=== PATIENT | male | born 1960 | race Caucasian/White ===

== ENCOUNTER 2016-12-19 02:48 | Observation (INO) | payer BC ==
[~2016-12-19] VITALS: Ht 180.3 cm; Wt 109.8 kg
[~2016-12-19 02:48] MED LIST: /ESCI20TA OR; /PANT40TA OR; ASPI81TA83 OR; COMBIN INH; CREON; CREON OR; GABA600T3; INSULANT SC; INSULANT SQ; INSULIN LANTUS; INSULIN LANTUS SC; INSULIN SC; LASIX PO; LIPI10TA OR; LISI10TA4 PO; LISI20TA5 OR; LYRI200C PO; LYRI300C OR; LYRI75CA PO; METH10TA2 OR; MICR10CA PO; MIRT1TAB PO; MULTIVIT OR; ORACEA OR; OXYC-208 PO; OXYC10TA56 OR; PANCREATIC ENZYME OR; ULTR50TA PO
[2016-12-19] MEDS ORDERED: DEXTROSE 50% 50 ML SYRINGE As Ordered ONE (03:12)
[2016-12-19 04:11] LABS: MEAN CORPUSCULAR HEMOGLOBIN 31.8 pg (27.0-33.0); MEAN CORPUSCULAR HGB CONC 33.5 g/dl (32.0-36.5); MEAN CORPUSCULAR VOLUME 94.7 fl (80.0-96.0); RED CELL DISTRIBUTION WIDTH 12.7 % (11.5-14.5); WHITE BLOOD COUNT 9.5 K/mm3 (4.0-10.0)
[2016-12-19 04:18] LABS: CALCIUM LEVEL 8.4 MG/DL (8.5-10.1); CREATININE FOR GFR 1.92 MG/DL (0.70-1.30); GLOMERULAR FILTRATION RATE 38.5 (>56); POTASSIUM SERUM 3.4 MEQ/L (3.5-5.1)
[2016-12-19] MEDS ORDERED: D5W/0.9% SODIUM CHLORIDE 1,000 ML IV SCH (04:45)
[2016-12-19] MEDS ORDERED: DEXTROSE 50% 50 ML VIAL IV ONE ×2 (04:45)
[2016-12-19] MEDS ORDERED: DEXTROSE 50% 50 ML SYRINGE IV STA (05:58)
[2016-12-19] MEDS ORDERED: PANT40TA2 PO (06:32)
[2016-12-19] MEDS ORDERED: INSUHUMDS SC (06:32)
[2016-12-19] MEDS ORDERED: MIRT15TA3 PO (06:32)
[2016-12-19] MEDS ORDERED: INSULANT SC (06:32)
[2016-12-19] MEDS ORDERED: CREO12CA PO (06:32)
[2016-12-19] MEDS ORDERED: ESCI20TA PO (06:32)
[2016-12-19] MEDS ORDERED: GLUCAGON FOR INJ 1 MG VIAL (J1610) SC PRN (08:15)
[2016-12-19] MEDS ORDERED: GLUCOSE 4 GM CHEW TABLET PO PRN (08:15)
[2016-12-19] MEDS ORDERED: ONDANSETRON 4MG/2ML VIAL (J2405) IV PRN (08:15)
[2016-12-19] MEDS ORDERED: ACETAMINOPHEN TAB 650MG DOSE (2X325MG) PO PRN (08:15)
[2016-12-19] MEDS ORDERED: DEXTROSE 50% 50 ML SYRINGE IV PRN (08:15)
[2016-12-19] MEDS ORDERED: D5W/0.45% SODIUM CHLORIDE 1,000 ML IV SCH (08:15)
[2016-12-19 08:17] VITALS: BP 143/68
[2016-12-19] MEDS ORDERED: TRAM50TA2 PO (08:24)
[2016-12-19] MEDS ORDERED: METO25TAB PO (08:24)
[2016-12-19] MEDS ORDERED: traMADol 50 MG TAB PO PRN (08:45)
[2016-12-19] MEDS: PANTOPRAZOLE 40MG TAB (PROTONIX) PO SCH (10:13)
[2016-12-19] MEDS: DOCUSATE SODIUM 100 MG CAP PO SCH ×2 (10:13→21:32)
[2016-12-19] MEDS: METOPROLOL TART 25 MG TABLET PO SCH ×2 (10:14→21:32)
[2016-12-19] MEDS: ESCITALOPRAM OXALATE 10 MG TAB (LEXAPRO) PO SCH (10:15)
[2016-12-19] MEDS: ENOXAPARIN 40 MG/0.4 ML SYRINGE (J1650) SC SCH (10:16)
[2016-12-19] MEDS: CREON-12 CAPSULE PO SCH ×2 (12:30→19:57)
[2016-12-19 12:55] LABS: ALBUMIN 3.3 GM/DL (3.2-5.2); CALCIUM LEVEL 7.7 MG/DL (8.5-10.1); CREATININE FOR GFR 1.61 MG/DL (0.70-1.30); GLOMERULAR FILTRATION RATE 47.2 (>56); PHOSPHORUS LEVEL 4.1 MG/DL (2.5-4.9); POTASSIUM SERUM 4.3 MEQ/L (3.5-5.1)
[2016-12-19] MEDS ORDERED: HumuLIN R (REGULAR) INSULIN (NovoLIN R) **100U/ML** PER UNIT As Ordered ONE (14:29)
[2016-12-19] MEDS: HumaLOG INSULIN (NovoLOG) PER UNIT SC SCH ×2 (14:32→16:38)
[2016-12-19 16:00] VITALS: BP 164/77
[2016-12-19] MEDS: NICOTINE 14 MG/24 HR TRANSDERMAL TD SCH (16:34)
--- NOTE | 2016-12-19 18:29 | HPE ---
DATE OF ADMISSION: 12/19/2016 PRIMARY CARE PROVIDER: Roel Meeks. END OF LIFE/ADVANCE DIRECTIVES: Full code. CHIEF COMPLAINT: Low blood sugar. HISTORY OF PRESENT ILLNESS: Mr. Zaidi is a 56-year-old gentleman who presented to the emergency department this morning after having low blood sugars at home, brought by emergency medical services (EMS), and did receive three doses of an amp of D50 which has not responded as well to his low blood sugar as what would initially have been anticipated. He did begin dosing with D5 half-normal saline. Blood glucose does appear to be responding appropriately. At any rate, we will go ahead and admit him for further observation. The patient informs me that his blood sugar was greater than 300 last evening before going to bed, and he took 80 units of his rapid-acting insulin. He informs me that he will occasionally take large doses of the insulin like this with no mal intent and he denies any suicidality. At any rate, he does appear to be alert, pleasant to talk to currently and has no specific complaints of headache, lightheadedness, dizziness, blurry vision, double vision or tinnitus. PAST MEDICAL HISTORY: 1. Insulin-dependent diabetes. 2. Hypertension. 3. Chronic pancreatitis. 4. Opioid dependence with methadone use in the past. PAST SURGICAL HISTORY: He relates that he has had gastrointestinal (GI) surgery in the past but is unable to recall what type. FAMILY HISTORY: Noncontributory. SOCIAL HISTORY: Positive for opioid dependence, cannabis use, tobacco use, smoking half pack a day, trying to quit, and prior history of alcohol dependence. He denies any recent alcohol use, however. No sick contacts or recent travel. ALLERGIES: MEPERIDINE. CURRENT HOME MEDICATIONS: - Lantus 20 units in the morning, 30 units evening - Lispro sliding-scale coverage before meals and at bedtime - Lexapro 20 mg daily - metoprolol tartrate 25 mg twice a day - mirtazapine 15 mg at bedtime - pancreatic enzymes 12,000 units two with meals. - pantoprazole 40 mg daily - tramadol 50 mg four times a day as needed for pain REVIEW OF SYSTEMS: CONSTITUTIONAL: Denies fevers, chills, rigors. No difficulty with speech or swallow. No nausea, no change in appetite. HEENT: No lightheadedness, dizziness, blurry vision, double vision or tinnitus. No difficulty with speech or swallow. PULMONARY: No productive sputum, cough or hemoptysis. CARDIOVASCULAR: No chest pain, no paroxysmal nocturnal dyspnea (PND). No orthopnea, no lower extremity edema. GASTROINTESTINAL (GI): No nausea, vomiting, diarrhea. Bowel movements are regular. He denies any hematochezia or melena. GENITOURINARY (): No dysuria, frequency or hematuria. MUSCULOSKELETAL: He denies bone loss or joint pain swelling, erythema. NEUROLOGIC: No paresthesias or paralysis. No weight loss. ENDOCRINE: Positive for diabetes. Positive for pancreatitis. Negative for thyroid disorder. LYMPHATICS: No lumps, bumps, swelling of the neck, axilla or groin. No night sweats, no weight loss. HEMATOLOGY: No bleeding or bruising disorder. No prior history of venous thromboembolism. ONCOLOGY: No history of cancer. PSYCHIATRIC: Positive for depression. He denies any suicidal ideation or homicidal ideation. No auditory or visual hallucinations. 10-point review of systems complete. Pertinent positives are listed. PHYSICAL EXAMINATION: VITAL SIGNS: Temperature is 96 tympanic, pulse 64 and regular, respiratory rate is 12, BP 143/74, sPO2 is 95% on room air. GENERAL: The patient appears to be in no acute distress. He is alert and oriented. HEENT is unremarkable. LUNGS: Clear. HEART: Regular rate, rhythm. ABDOMEN: Soft. EXTREMITIES: No edema. No calf tenderness. LABORATORY DATA: White count is 9.5, hemoglobin 14.5, platelets 238,000. Sodium initially 141, potassium 3.4, chloride 107, bicarb 25, anion gap 9, BUN 21, creatinine 1.92, glucose is 50, calcium 8.4. After receiving D5 half-normal, his fingersticks have increased to 128, 174, and 366 respectively and he is tolerating meals. IMPRESSION: Mr. Zaidi is a 56-year-old gentleman who took too much insulin last evening and has subsequently resulted in significantly low, slow to respond hypoglycemia. He has received three doses of dextrose 50% and has currently been placed on D5 half-normal saline at 150 mL an hour. Will continue to do so until his blood sugars have responded appropriately and we can advance his diet. PROBLEM LIST: 1. Hypoglycemia secondary to large bolus of insulin. He denies suicidality. 2. Insulin-dependent diabetes. 3. Chronic pancreatitis. 4. Gastroesophageal reflux disease (GERD). 5. Tobacco use. 6. History of opioid use/abuse. 7. History of alcohol use. PLAN: The patient will be admitted to progressive care unit (PCU). Will follow him closely and repeat renal profile in a.m at noon. I elected not to address his slightly low potassium since this is most likely related to his insulin. I will repeat the renal profile to see how his creatinine is improving. He did have some slight acute kidney injury, likely due to some mild dehydration. Will see how he does with fluids and readdress later this afternoon. Hopefully we will be able to advance his diet. He will need diabetic education and will need appropriate followup once he is ready for discharge. The patient was admitted observation (OBS) and anticipate discharge sometime in less than 24 hours.
[2016-12-19 20:00] VITALS: BP 142/80
[2016-12-19] MEDS ORDERED: HumaLOG INSULIN (NovoLOG) PER UNIT SC SCH (21:00)
[2016-12-19] MEDS ORDERED: MIRTAZAPINE 15 MG TAB PO SCH (21:00)
[2016-12-19] MEDS: LEVEMIR (INSULIN DETEMIR) 1 UNITS/0.01ML SC SCH (21:33)
[2016-12-19 23:59] VITALS: BP 142/84
[2016-12-20 03:56] VITALS: BP 145/87
[2016-12-20 05:59] LABS: MEAN CORPUSCULAR HEMOGLOBIN 31.1 pg (27.0-33.0); MEAN CORPUSCULAR HGB CONC 32.6 g/dl (32.0-36.5); MEAN CORPUSCULAR VOLUME 95.5 fl (80.0-96.0); RED CELL DISTRIBUTION WIDTH 12.6 % (11.5-14.5); WHITE BLOOD COUNT 5.2 K/mm3 (4.0-10.0)
[2016-12-20 06:08] LABS: CALCIUM LEVEL 8.4 MG/DL (8.5-10.1); CREATININE FOR GFR 1.4 MG/DL (0.70-1.30); GLOMERULAR FILTRATION RATE 55.4 (>56)
[2016-12-20] MEDS ORDERED: NICO14PA TD (07:07)
[2016-12-20 08:00] VITALS: BP 130/69
[2016-12-20] MEDS: ENOXAPARIN 40 MG/0.4 ML SYRINGE (J1650) SC SCH (08:44)
[2016-12-20] MEDS: HumaLOG INSULIN (NovoLOG) PER UNIT SC SCH ×2 (08:45→11:47)
[2016-12-20] MEDS: CREON-12 CAPSULE PO SCH ×2 (08:45→11:47)
[2016-12-20] MEDS: LEVEMIR (INSULIN DETEMIR) 1 UNITS/0.01ML SC SCH (08:45)
[2016-12-20] MEDS: ESCITALOPRAM OXALATE 10 MG TAB (LEXAPRO) PO SCH (08:46)
[2016-12-20] MEDS: DOCUSATE SODIUM 100 MG CAP PO SCH (08:46)
[2016-12-20] MEDS: PANTOPRAZOLE 40MG TAB (PROTONIX) PO SCH (08:46)
[2016-12-20 08:47] VITALS: BP 130/69
[2016-12-20] MEDS: METOPROLOL TART 25 MG TABLET PO SCH (08:47)
[2016-12-20] MEDS: NICOTINE 14 MG/24 HR TRANSDERMAL TD SCH (08:47)
--- NOTE | 2016-12-20 16:18 | DSES ---
DATE OF ADMISSION: 12/19/2016 DATE OF DISCHARGE: 12/20/2016 PRIMARY CARE PROVIDER: Roel Meeks MD CONSULTATIONS: None. PROCEDURES PERFORMED: None. COMPLICATIONS: None. ADMISSION/DISCHARGE DIAGNOSES: 1. Hypoglycemia related to overdosing of insulin. 2. Insulin dependent diabetes. 3. Hypertension. 4. Chronic pancreatitis. 5. Opioid dependence with prior use of methadone use. BRIEF HOSPITAL COURSE: Mr. Zaidi is a 56-year-old gentleman who related to me that he had used 80 units of Lispro the night prior to presenting to the emergency department for having a blood sugar greater than 300. He was not feeling well, was brought in by EMS the following morning, did receive three doses of an ampule of D50 which had slow response of his blood sugar, eventually requiring him to be placed on D5 half-normal saline and admitted for observation. He did well throughout the day and through the evening hours and the following morning he was able to be discharged home after doing some further diabetic education and making sure that he has an appropriate sliding scale and understands the uses of rapid acting insulin versus long-acting insulin that he has at home. He informed me that this was not a suicide attempt. He feels that he does not feel suicidal, blue, down or depressed, does not have any further issues, and was able to demonstrate appropriate insight. For further information regarding intake, physical, labs, diagnostics, please refer to the history and physical (H P). PHYSICAL EXAMINATION: Today: Temperature is 96, pulse of 86, respiratory rate is 18, blood pressure 130/69, SpO2 is 97% on room air. GENERAL: The patient appears to be in no acute distress. Is alert and oriented. HEENT: Unremarkable. LUNGS: Clear. HEART: Regular rate and rhythm. ABDOMEN: Soft. EXTREMITIES: No edema or calf tenderness. LABORATORY DATA: White count is 5.2, hemoglobin 12.5, likely from hemodilution, platelets are 184. Sodium is 140, potassium 109, bicarbonate 25, anion gap 6, BUN is 15, creatinine is 1.4, glucose is 214. DISCHARGE CONDITION: Good. DISPOSITION: Discharge to home with appropriate followup. DISCHARGE MEDICATIONS: - Lexapro 20 mg daily - Nicoderm patch one patch daily, counseling was provided, and encouraged smoking cessation - Lantus 20 units twice a day - lispro sliding scale to be used before food and not at bedtime - metoprolol tartrate 25 mg twice a day - mirtazapine 15 mg at bedtime - pancreatic enzymes 12,000 units two tablets with each meal - pantoprazole 40 mg daily - tramadol 50 mg four times a day as needed for back pain DISCHARGE INSTRUCTIONS: Discharge to home. We will provide a public health referral for further nursing followup at home and reinforcement of insulin injections and diabetic education. He should followup with Dr. Roel Meeks in a week. Activity as tolerated. Consistent carbohydrate diet. He should seek medical attention if symptoms should worsen or progress. He voices understanding. Discharge took approximately 35 minutes.
== END 2016-12-20 13:41 | disposition home health service (06) ==
LOC: EDBD 02:48 → M ED 03:34 → M ED INP 08:05 → M PCU 13:22
PROVIDERS: ADMIT Hospitalist; ATTEND Hospitalist
DX: T38.3X1A Poisoning by insulin and oral hypoglycemic [antidiabetic] drugs, accidental (unintentional), initial encounter (principal); E11.9 Type 2 diabetes mellitus without complications; Z79.4 Long term (current) use of insulin; Z79.899 Other long term (current) drug therapy; F11.20 Opioid dependence, uncomplicated; K86.1 Other chronic pancreatitis
CPT/HCPCS: 36415; 80048; 80069; 85027; 86803; 96372; 99285; J1650

== ENCOUNTER 2017-10-04 13:44 | Emergency (ER) | payer BC ==
[~2017-10-04] VITALS: Ht 175.3 cm; Wt 100.0 kg
[~2017-10-04 13:44] MED LIST changes: +CREO12CA PO; +ESCI20TA PO; +INSUHUMDS SC; +METO25TA4 PO; +MIRT15TA3 PO; +NICO14PA TD; +PANT40TA2 PO; +TRAM50TA2 PO
[2017-10-04] MEDS ORDERED: INSULANT SC (14:04)
[2017-10-04 15:26] LABS: CALCIUM LEVEL 8.4 MG/DL (8.5-10.1); CREATININE FOR GFR 1.61 MG/DL (0.70-1.30); POTASSIUM SERUM 3.6 MEQ/L (3.5-5.1)
[2017-10-04 15:53] VITALS: BP 151/72
== END 2017-10-04 15:54 | disposition home or self-care (01) ==
LOC: M ED 13:44 → EDBD 13:44 → M ED 15:54
DX: E10.649 Type 1 diabetes mellitus with hypoglycemia without coma (principal); I25.10 Atherosclerotic heart disease of native coronary artery without angina pectoris; I25.2 Old myocardial infarction; K86.1 Other chronic pancreatitis; Z79.899 Other long term (current) drug therapy; Z79.4 Long term (current) use of insulin; Z88.5 Allergy status to narcotic agent; F17.210 Nicotine dependence, cigarettes, uncomplicated

== ENCOUNTER 2017-12-08 16:17 | Emergency (ER) | payer BC ==
[2017-12-08 17:17] LABS: BASO % 0.7 % (0.0-1.0); EOS # 0.1 10^3/uL (0.0-0.50); HEMATOCRIT 39.2 % (42.0-52.0); HEMOGLOBIN 13.3 g/dl (14.0-18.0); IMMATURE GRANULOCYTE % 0.2 % (0-3.0); LYMPH # 1.3 10^3/uL (1.5-4.5); LYMPH % 22.4 % (24.0-44.0); MEAN CORPUSCULAR HEMOGLOBIN 31.8 pg (27.0-33.0); MEAN CORPUSCULAR HGB CONC 33.9 g/dl (32.0-36.5); MEAN CORPUSCULAR VOLUME 93.8 fl (80.0-96.0); MONO # 0.6 10^3/uL (0.0-0.8); MONO % 10.4 % (0.0-5.0); NEUTROPHILS # 3.8 10^3/uL (1.8-7.7); NEUTROPHILS % 64.3 % (36.0-66.0); PLATELET COUNT, AUTOMATED 193 10^3/uL (150-450); RED BLOOD COUNT 4.18 10^6/uL (4.30-6.10); RED CELL DISTRIBUTION WIDTH 12.4 % (11.5-14.5)
[2017-12-08] MEDS: KETOROLAC 30 MG/ML VIAL (J1885) IV (17:25)
[2017-12-08] MEDS: NS 1,000 ML IV (17:25)
[2017-12-08] MEDS: ONDANSETRON 4MG/2ML VIAL (J2405) IV (17:25)
[2017-12-08 17:28] LABS: INR 0.93; PROTHROMBIN TIME 12.5 SECONDS (12.4-14.5)
[2017-12-08 17:29] LABS: ANION GAP 9 MEQ/L (8-16); AST/SGOT 24 U/L (7-37); BLOOD UREA NITROGEN 25 MG/DL (7-18); CALCIUM LEVEL 8.5 MG/DL (8.5-10.1); CARBON DIOXIDE LEVEL 25 MEQ/L (21-32); CHLORIDE LEVEL 100 MEQ/L (98-107); CREATININE FOR GFR 1.62 MG/DL (0.70-1.30); GLOMERULAR FILTRATION RATE 46.7 (>56); GLUCOSE, FASTING 288 MG/DL (70-100); POTASSIUM SERUM 4.9 MEQ/L (3.5-5.1); SODIUM LEVEL 134 MEQ/L (136-145)
[2017-12-08 17:30] LABS: ALBUMIN 3.5 GM/DL (3.2-5.2); ALBUMIN/GLOBULIN RATIO 0.88 (1.00-1.93); ALKALINE PHOSPHATASE 124 U/L (45-117); ALT/SGPT 30 U/L (12-78); BILIRUBIN,DIRECT 0.2 MG/DL (0.0-0.2); BILIRUBIN,TOTAL 0.6 MG/DL (0.2-1.0); LIPASE 29 U/L (73-393); TOTAL PROTEIN 7.5 GM/DL (6.4-8.2)
[2017-12-08 18:47] LABS: KETONE, URINE AUTO RFX 1+ mg/dL (NEGATIVE); LEUKOCYTE ESTERASE UR AUTO RFX NEGATIVE (NEGATIVE); MUCUS, URINE RFX SMALL (NEGATIVE); NITRITE, URINE AUTO RFX NEGATIVE (NEGATIVE); RBC, URINE AUTO RFX 1 /HPF (0-3); SPECIFIC GRAVITY UR AUTO RFX 1.017 (1.002-1.035); SQUAM EPITHELIAL CELL UR AURFX 0 /HPF (0-6); WBC, URINE AUTO RFX 0 /HPF (0-3)
[2017-12-08] MEDS: MAGNESIUM CITRATE 300 ML BTL PO (19:00)
== END 2017-12-08 19:27 | disposition home or self-care (01) ==
LOC: M ED 16:17
DX: K59.00 Constipation, unspecified (principal); I51.9 Heart disease, unspecified; I10 Essential (primary) hypertension; E11.9 Type 2 diabetes mellitus without complications; K21.9 Gastro-esophageal reflux disease without esophagitis; F17.200 Nicotine dependence, unspecified, uncomplicated; N20.0 Calculus of kidney; K86.1 Other chronic pancreatitis; Z79.4 Long term (current) use of insulin; Z79.899 Other long term (current) drug therapy; Z88.8 Allergy status to other drugs, medicaments and biological substances
CPT/HCPCS: J2405

== ENCOUNTER 2017-12-31 15:21 | Emergency (ER) | payer BC ==
[2017-12-31 17:10] LABS: BASO # 0.1 10^3/uL (0.0-0.2); BASO % 1.1 % (0.0-1.0); EOS # 0.1 10^3/uL (0.0-0.50); EOS % 2.3 % (0.0-3.0); HEMATOCRIT 39.9 % (42.0-52.0); HEMOGLOBIN 13.4 g/dl (14.0-18.0); IMMATURE GRANULOCYTE % 0.4 % (0-3.0); LYMPH # 1.3 10^3/uL (1.5-4.5); LYMPH % 22.5 % (24.0-44.0); MEAN CORPUSCULAR HGB CONC 33.6 g/dl (32.0-36.5); MEAN CORPUSCULAR VOLUME 92.4 fl (80.0-96.0); MONO # 0.5 10^3/uL (0.0-0.8); MONO % 9.4 % (0.0-5.0); NEUTROPHILS # 3.6 10^3/uL (1.8-7.7); NEUTROPHILS % 64.3 % (36.0-66.0); PLATELET COUNT, AUTOMATED 176 10^3/uL (150-450); RED BLOOD COUNT 4.32 10^6/uL (4.30-6.10); RED CELL DISTRIBUTION WIDTH 12.6 % (11.5-14.5); WHITE BLOOD COUNT 5.6 10^3/uL (4.0-10.0)
[2017-12-31 17:20] LABS: ANION GAP 5 MEQ/L (8-16); BLOOD UREA NITROGEN 25 MG/DL (7-18); CALCIUM LEVEL 8.5 MG/DL (8.5-10.1); CARBON DIOXIDE LEVEL 29 MEQ/L (21-32); CHLORIDE LEVEL 104 MEQ/L (98-107); CREATININE FOR GFR 1.49 MG/DL (0.70-1.30); GLOMERULAR FILTRATION RATE 51.4 (>56); GLUCOSE, FASTING 214 MG/DL (70-100); POTASSIUM SERUM 4.6 MEQ/L (3.5-5.1); SODIUM LEVEL 138 MEQ/L (136-145)
[2017-12-31 17:24] LABS: ALBUMIN 3.3 GM/DL (3.2-5.2); ALKALINE PHOSPHATASE 107 U/L (45-117); ALT/SGPT 27 U/L (12-78); AST/SGOT 25 U/L (7-37); BILIRUBIN,DIRECT 0.1 MG/DL (0.0-0.2); BILIRUBIN,TOTAL 0.6 MG/DL (0.2-1.0); LIPASE 28 U/L (73-393); TOTAL PROTEIN 6.6 GM/DL (6.4-8.2)
[2017-12-31 18:40] LABS: BEDSIDE GLUCOSE 254 MG/DL (70-105)
[2017-12-31] MEDS: HumaLOG INSULIN (NovoLOG) PER UNIT SC (18:51)
== END 2017-12-31 20:31 | disposition home or self-care (01) ==
LOC: M ED 15:21
DX: Z59.9 Problem related to housing and economic circumstances, unspecified (principal); E11.9 Type 2 diabetes mellitus without complications; I10 Essential (primary) hypertension; K86.1 Other chronic pancreatitis; F17.210 Nicotine dependence, cigarettes, uncomplicated; F11.20 Opioid dependence, uncomplicated; Z79.82 Long term (current) use of aspirin; Z79.899 Other long term (current) drug therapy; Z79.4 Long term (current) use of insulin; Z88.8 Allergy status to other drugs, medicaments and biological substances
CPT/HCPCS: 71046